=== PATIENT | male | born 1980 | race African-American/Black ===

== ENCOUNTER 2022-05-02 01:07 | Emergency (ER) | payer SELFPAY ==
[2022-05-02] MEDS ORDERED: cefTRIAXone (ROCEPHIN) 500 MG VIAL ONE (01:56)
[2022-05-02] MEDS ORDERED: Lidocaine 1% PF 5 ML VIAL ONE (01:56)
[2022-05-02 02:35] LABS: Bilirubin Negative (Negative); Blood, Urine 1+ (Negative); Clarity Turbid (Clear); Glucose, Urine (Dipstick) Normal (Negative); Ketone, Urine Negative (Negative); Leukocyte 500 Leu/uL (Negative); Nitrite Negative (Negative); Protein, Urine (Dipstick) 20 mg/dL (Neg-Trace); Specific Gravity, Urine 1.028 (1.002-1.036); Squamous Epithelial 0-3 HPF (0-3); Urobilinogen Normal mg/dL (Less than 2); WBC/HPF Greater than 50 HPF (0-3); pH, Urine 5.5 (5.0-9.0)
[2022-05-02 02:37] LABS: Bacteria/HPF Rare-Few HPF (None Seen)
[2022-05-02 14:48] LABS: Chlam.trachomatis by PCR,Urine Not Detected (NotDetected); GC N.gonorrhoeae PCR,UrineVOID DETECTED (NotDetected)
== END 2022-05-02 02:36 | disposition home or self-care (01) ==
LOC: ERS 01:07
DX: A64 Unspecified sexually transmitted disease (principal); F17.210 Nicotine dependence, cigarettes, uncomplicated
CPT/HCPCS: 81003; 81015; 87491; 87591; 96372; 99283; J0696